=== PATIENT | female | born 1965 | race Caucasian/White ===

== ENCOUNTER 2017-05-30 08:41 | Day surgery (SDC) | payer BC ==
[2017-05-30 09:17] VITALS: BMI 37.8
[2017-05-30 09:49] VITALS: O2SAT 100
[2017-05-30] MEDS ORDERED: Lactated Ringer's 1,000 ML IV ONE (12:35)
[2017-05-30] MEDS ORDERED: Propofol 10 mg/ml Inj (20 ML) ONE (12:36)
[2017-05-30] MEDS ORDERED: Lactated Ringer's 500 ML IV SCH (12:45)
[2017-05-30 14:15] VITALS: TEMP 97
[2017-05-30 14:16] VITALS: RESP 18
[2017-05-30 14:21] VITALS: BP 127/63; PULSE 60
== END 2017-05-30 14:10 | disposition home or self-care (01) ==
LOC: C.ENDO 08:41
PROVIDERS: ATTEND Internal Medicine Gastroenterology
DX: Z12.11 Encounter for screening for malignant neoplasm of colon (principal); K64.1 Second degree hemorrhoids

== ENCOUNTER 2017-07-25 06:30 | Day surgery (SDC) | payer BC ==
[2017-07-25] MEDS ORDERED: Lactated Ringer's 500 ML IV ONE ×2 (08:36)
[2017-07-25] MEDS ORDERED: Propofol 10 mg/ml Inj (20 ML) ONE ×2 (09:02→09:17)
--- NOTE | 2017-07-25 09:05 | CP.SDSHP ---
Same Day Surgery H & P - History Proposed Procedure: EGD Pre-Op Diagnosis: abdominal pain, heartburn - Allergies Allergies: Allergies No Known Allergies Allergy (Verified 07/25/17 07:04) - Physical Exam General Appearance: NAD Vital Signs: Vital Signs 07/25/17 07:15 Temperature 97 F L Pulse Rate 58 L Respiratory 19 Rate Blood Pressure 127/67 O2 Sat by Pulse 99 Oximetry Mental Status: Alert & Oriented x3 Neuro: WNL Heart: WNL Lungs: WNL GI: WNL - {Optional Preform as Required} Abdomen: WNL - Impression Pt. Evaluated Today:Candidate for Anesthesia & Procedure: Yes - Date & Time Date: 07/25/17 Time: 09:05 Short Stay Discharge - Short Stay Discharge Admitting Diagnosis/Reason for Visit: ABDOMINAL PAIN Disposition: HOME/ ROUTINE
[2017-07-25 09:44] VITALS: TEMP 97.7
[2017-07-25 10:42] VITALS: RESP 20
[2017-07-25 10:48] VITALS: BP 132/69; PULSE 53; O2SAT 99
== END 2017-07-25 10:25 | disposition home or self-care (01) ==
LOC: C.ENDO 06:30
PROVIDERS: ATTEND Internal Medicine Gastroenterology
DX: K21.0 Gastro-esophageal reflux disease with esophagitis (principal); K29.60 Other gastritis without bleeding
CPT/HCPCS: 43239; 88305; 88312; 88313; 88342; J2001; J2704; J7120

== ENCOUNTER 2018-10-30 09:20 | Day surgery (SDC) | payer BC | END 2018-10-30 11:50 | disposition home or self-care (01) | LOC: C.ENDO 09:20 | DX: Z53.8 Procedure and treatment not carried out for other reasons (principal); Z12.11 Encounter for screening for malignant neoplasm of colon ==